=== PATIENT | male | born 1975 | race Caucasian/White ===

== ENCOUNTER 2022-09-22 10:07 | Emergency (ER) | payer BC ==
[~2022-09-22] VITALS: Ht 180.3 cm; Wt 100.0 kg
[2022-09-22 10:54] LABS: BASO % 0.2 % (0.0-2.0); EOS # 0.1 K/mm3 (0.0-0.7); EOS % 0.5 % (0.0-4.0); GRAN # 9.8 K/mm3 (1.4-6.5); GRAN % 77.5 % (42.2-75.2); HEMATOCRIT 45.8 % (42.0-52.0); LYMPH # 1.6 K/mm3 (1.2-3.4); LYMPH % 12.9 % (20.0-51.0); MEAN CELL VOLUME 85 fl (80.0-100.0); MEAN CORPUSCULAR HEMOGLOBIN 30 pg (27-31); MEAN CORPUSCULAR HGB CONC 35 g/dl (33.0-37.0); MONO # 1.1 K/mm3 (0.1-0.6); MONO % 8.6 % (1.7-9.3); PLATELET COUNT 360 K/mm3 (130-400); RED BLOOD COUNT 5.36 M/mm3 (4.20-5.60); REDCELL DISTRIBUTION WIDTH-CV 12.5 % (11.5-14.5)
[2022-09-22 11:44] LABS: ALBUMIN 3.8 gm/dL (3.5-5.0); CALCIUM 9.3 mg/dL (8.4-10.2); CREATININE, serum 0.8 mg/dL (0.72-1.25)
[2022-09-22] MEDS ORDERED: AMOXICILLIN 8751 TAB PO (11:52)
[2022-09-22 11:58] LABS: POTASSIUM 4.1 mmol/L (3.5-4.5)
[2022-09-22 12:05] LABS: COLLECTION METHOD CLEAN CATCH
[2022-09-22 12:11] LABS: MUCOUS Present (NOT PRESENT); PH 6.5 (5.0-8.5); SQUAMOUS EPITHELIAL None Seen /hpf (0-10); URINE APPEARANCE Clear (CLEAR/HAZY); URINE BACTERIA None Seen /hpf (NONE SEEN); URINE COLOR Yellow (YELLOW); URINE GLUCOSE Negative (NEGATIVE); URINE KETONE 2+ (NEGATIVE); URINE PROTEIN(semi-quant) Negative (NEGATIVE); URINE UROBILINOGEN 0.2 E.U/dL (0.2-1.0)
[2022-09-22 12:12] LABS: URINE BLOOD 1+ (NEGATIVE); URINE NITRATE Negative (NEGATIVE)
[2022-09-22] MEDS ORDERED: NORCO 325 MG-51 TAB PO (12:41)
[2022-09-22 12:54] VITALS: BP 160/82; PULSE 84; TEMP 98.3
== END 2022-09-22 12:56 | disposition home or self-care (01) ==
LOC: COL.ER 10:07
PROVIDERS: Personal Emergency Response Attendant; Physician Assistant
DX: K57.32 Diverticulitis of large intestine without perforation or abscess without bleeding (principal)
CPT/HCPCS: J1885; J2405; J7030; Q9967